=== PATIENT | female | born 1990 | race Caucasian/White ===

== ENCOUNTER → 2018-02-13 14:03 | Outpatient (CLI) | payer OTHER, SELFPAY ==
--- NOTE | 2018-02-13 | DI.US.S_ITS ---
PROCEDURE: US OB <= 14 WEEKS FETUS INDICATIONS: INITIAL SIZING OUTSIDE/PRIOR DATING DATA: Last menstrual period (LMP): 12/24/17. LMP-based estimated date of delivery (FRANKIE): 09/30/18 First dating scan (date and location): 02/13/18. Estimated date of delivery (FRANKIE) from first dating scan: 10/11/18 (however by sac measurements only recommend followup as discussed below). TECHNIQUE: Real-time scanning was performed of the fetus and maternal pelvic organs, with image documentation. Endovaginal scanning was also performed to better visualize the fetus and maternal ovaries. COMPARISON: None. FINDINGS: Embryo: No embryo seen at this time. Saclike fluid collection present with mean gestational sac size indicating 5 weeks 5 days gestation. No yolk sac identified. Measurement variability in dating: +/- 4 weeks by LMP, +/- 7 days by mean sac diameter (use before 6 weeks gestation if crown-rump length not able to be measured), +/- 5 days by crown-rump length (up to 8 weeks 6 days gestation), +/- 7 days by crown-rump length (up to 13 weeks 6 days gestation). Maternal organs: Ovaries within normal limits, with right corpus luteal cyst. Limited images through the kidneys demonstrate no hydronephrosis. IMPRESSION: Intrauterine gestational sac-like fluid collection present with no pole or yolk sac seen at this time. Recommend follow up in one week to assess embryonic viability. Dictated by: Chuy FREGOSO Interpreted: Patrice Cristina MD on 02/13/2018 at 15:40 Approved by: Jose Roland M.D. on 02/16/2018 at 10:21
== END ==
PROVIDERS: Visit Provider Nurse Practitioner Family
DX: Z36.89 Encounter for other specified antenatal screening (principal)
CPT/HCPCS: 76801

== ENCOUNTER → 2018-03-02 09:09 | Outpatient (CLI) | payer OTHER, SELFPAY ==
--- NOTE | 2018-03-02 | DI.US.S_ITS ---
PROCEDURE: US OB <= 14 WEEKS FETUS INDICATIONS: INITIAL SIZING AND DATING OUTSIDE/PRIOR DATING DATA: Last menstrual period (LMP): 12/24/17. LMP-based estimated date of delivery (FRANKIE): 09/30/18. First dating scan (date and location): 02/13/18 Estimated date of delivery (FRANKIE) from first dating scan: 10/11/18 by mean gestational sac size. TECHNIQUE: Real-time scanning was performed of the fetus and maternal pelvic organs, with image documentation. Endovaginal scanning was also performed to better visualize the fetus and maternal ovaries. COMPARISON: [facility], , OB <= 14 WEEKS FETUS, 02/13/2018, 14:25. FINDINGS: Embryo: Intrauterine gestational saclike fluid collection again identified without pole or yolk sac and there is irregularity of the sac. No change in size of the sac measuring roughly 9 mm. Measurement variability in dating: +/- 4 weeks by LMP, +/- 7 days by mean sac diameter (use before 6 weeks gestation if crown-rump length not able to be measured), +/- 5 days by crown-rump length (up to 8 weeks 6 days gestation), +/- 7 days by crown-rump length (up to 13 weeks 6 days gestation). Maternal organs: Left are not visualized. Right ovary within normal limits, with a corpus luteal cyst. Limited images through the kidneys demonstrate no hydronephrosis. IMPRESSION: Gestational saclike intrauterine fluid collection redemonstrated unchanged in size and measuring 9 mm and no pole or yolk sac is seen. Findings suggesting blighted ovum versus early embryonic demise. Recommend correlation with serial beta-hCGs. Dictated by: Chuy FREGOSO Interpreted: Jalen Orosco MD on 03/02/2018 at 10:06 Approved by: Jalen Orosco M.D. on 03/02/2018 at 14:40
== END ==
PROVIDERS: PCP Family Medicine; Visit Provider Family Medicine
DX: Z34.91 Encounter for supervision of normal pregnancy, unspecified, first trimester (principal)
CPT/HCPCS: 76801; 76817

== ENCOUNTER → 2018-07-28 14:43 | Outpatient (CLI) | payer OTHER, SELFPAY ==
--- NOTE | 2018-07-28 | DI.US.S_ITS ---
PROCEDURE: US PELVIC COMPLETE INDICATIONS: IRREGULAR MENSES TECHNIQUE: Real-time scanning was performed of the pelvic organs, with image documentation. Additional endovaginal scanning was necessary due to incomplete visualization of the adnexal and endometrial structures by transabdominal scanning. COMPARISON: None. FINDINGS: Transabdominal scanning: Limited scanning through the kidneys shows no hydronephrosis. No pathologic free abdominal or pelvic fluid. Endovaginal scanning: Uterus: Uterus is normal in size at 8.0 x 4.3 x 5.4 cm. The endometrium measures 10 mm in combined thickness. Ovaries: Solid appearing (likely complex) mass involves the right ovary measuring 2.0 x 1.6 x 1.8 cm with peripheral flow identified with color Doppler which may represent a complex cyst. The ovaries otherwise are normal bilaterally. IMPRESSION: Mass involving the right ovary which may represent a complex hemorrhagic cyst. Recommend short-term followup pelvic ultrasound in 6-12 weeks to assure temporal resolution. Dictated by: Chuy FREGOSO Interpreted: Haydee Kevin MD on 07/28/2018 at 17:06 Approved by: Haydee Kevin M.D. on 07/28/2018 at 17:38
== END ==
PROVIDERS: PCP Family Medicine; Visit Provider Nurse Practitioner Family
DX: N92.6 Irregular menstruation, unspecified (principal); N83.9 Noninflammatory disorder of ovary, fallopian tube and broad ligament, unspecified
CPT/HCPCS: 76830; 76856

== ENCOUNTER → 2018-09-24 17:30 | Outpatient (CLI) | payer OTHER, SELFPAY ==
[2018-09-24 18:47] LABS: HCG Quantitative /Beta subunit 8404.5 mIU/mL
== END ==
PROVIDERS: PCP Nurse Practitioner Family; Visit Provider Obstetrics & Gynecology
DX: O20.0 Threatened abortion (principal)
CPT/HCPCS: 36415; 84702

== ENCOUNTER → 2018-09-26 12:07 | Outpatient (CLI) | payer OTHER, SELFPAY ==
[2018-09-26 13:56] LABS: HCG Quantitative /Beta subunit 14475 mIU/mL
== END ==
PROVIDERS: PCP Nurse Practitioner Family; Visit Provider Obstetrics & Gynecology
DX: O20.0 Threatened abortion (principal)
CPT/HCPCS: 36415; 84702

== ENCOUNTER → 2018-11-09 16:26 | Outpatient (CLI) | payer OTHER, SELFPAY ==
[2018-11-09 17:14] LABS: Add Manual Diff / Slide Review NO; Basophils Absolute Auto 0 /uL (0-100); Basophils Percent Auto 0.4 % (0-2); Eosinophils Absolute Auto 100 /uL (0-450); Eosinophils Percent Auto 0.8 % (2-4); Hematocrit 40.4 % (36-46); Hemoglobin 13.9 g/dL (12.0-16.0); Lymphocytes Absolute Auto 2400 /uL (1100-4500); Lymphocytes Percent Auto 25.9 % (25-40); Mean Corpuscular HGB Conc 34.5 % (30-36); Monocytes Absolute Auto 700 /uL (0-900); Monocytes Percent Auto 7.8 % (3-14); Neutrophils Absolute Auto 5900 /uL (1500-7000); Neutrophils Percent Auto 65.1 % (50-75); Platelet Count 216 X10^3/uL (150-400); Red Blood Cell Count 4.49 X10^6/uL (4.0-5.2); Red Cell Distribution Width 14.5 % (11.6-14.8); White Blood Cell Count 9.1 X10^3/uL (4.5-11.0)
[2018-11-09 17:29] LABS: Appearance Urine UA CLEAR; Bilirubin Urine UA NEGATIVE (NEGATIVE); Color Urine UA YELLOW; Glucose Urine UA NEGATIVE (Negative); Ketones Urine UA NEGATIVE (NEGATIVE); Leukocyte Esterase Urine UA 2+ (NEGATIVE); Nitrite Urine UA NEGATIVE (Negative); Occult Blood Urine UA NEGATIVE (Negative); Protein Urine UA NEGATIVE (Negative); Specific Gravity Urine UA <=1.005 (1.000-1.035); Urobilinogen Urine UA 0.2 E.U./dL (0.2)
[2018-11-09 18:15] LABS: Hepatitis B Surface Antigen NEGATIVE s/c (NEGATIVE)
[2018-11-09 18:20] LABS: RBC Urine 0-1/HPF (0-5/HPF)
[2018-11-09 18:21] LABS: Bacteria Urine Few (2-10); Squamous Epithelial Cell Urine 1-5 /HPF; Transitional Epi Cells Urine 1-5/HPF (0-5/HPF); WBC Urine 5-10/HPF (0-5/HPF)
[2018-11-09 18:32] LABS: HIV 1 and 2 Antibody NEGATIVE (NEGATIVE); Hep C Virus Ab w/Reflex Quant NEGATIVE s/c (NEGATIVE)
[2018-11-11 10:44] LABS: RPR Screen Nonreactive (Nonreactive)
== END ==
PROVIDERS: PCP Nurse Practitioner Family; Visit Provider Obstetrics & Gynecology
DX: Z34.91 Encounter for supervision of normal pregnancy, unspecified, first trimester (principal)
CPT/HCPCS: 36415; 80055; 81003; 81015; 86703; 86787; 86803; 86850; 86900; 86901; 87086

== ENCOUNTER → 2018-11-17 19:06 | Outpatient (REF) | payer OTHER, SELFPAY ==
[2018-11-17 21:32] LABS: Urine N gonorrhoeae NOT DETECTED
[2018-11-17 21:48] LABS: Urine Chlamydia NOT DETECTED
== END ==
LOC: LAB 19:06
PROVIDERS: PCP Nurse Practitioner Family; Visit Provider Obstetrics & Gynecology
DX: Z34.81 Encounter for supervision of other normal pregnancy, first trimester (principal)
CPT/HCPCS: 87491; 87591

== ENCOUNTER → 2018-12-22 17:07 | Outpatient (CLI) | payer OTHER, SELFPAY ==
[2018-12-29 12:52] LABS: AFP, Serum 49.5 ng/mL; Cigarette Smoker NOT GIVEN; Donated Egg N; Donor Egg Age NOT GIVEN; Estriol, Free 1.44 ng/mL; Inhibin A, Dimeric 82 pg/mL; Maternal Weight 134 lbs; Number of Fetuses 1; Previous Pregnancy Down Syndro N; hCG, MoM 0.65
== END ==
PROVIDERS: PCP Nurse Practitioner Family; Visit Provider Obstetrics & Gynecology
DX: Z34.82 Encounter for supervision of other normal pregnancy, second trimester (principal); Z3A.19 19 weeks gestation of pregnancy
CPT/HCPCS: 36415; 82105; 82677; 84702; 86336

== ENCOUNTER → 2019-01-01 15:13 | Outpatient (CLI) | payer OTHER, SELFPAY ==
--- NOTE | 2019-01-01 15:15 | DI.US.S_ITS ---
PROCEDURE: US OB >= 14 WEEKS FETUS INDICATIONS: Anatomy Survey OUTSIDE/PRIOR DATING DATA: Last menstrual period (LMP): Unknown. LMP-based estimated date of delivery (FRANKIE): N./A.. First dating scan (date and location): 10/19/18. Estimated date of delivery (FRANKIE) from first dating scan: 05/21/19. TECHNIQUE: Real-time scanning was performed of the fetus, with image documentation and biometric measurements. Endovaginal scanning: No COMPARISON: [facility], , OB >= 14 WEEKS FETUS, 12/22/2018, 17:01. FINDINGS: General: A single living intrauterine gestation is present. Presentation: Vertex. Placenta: Placental position is anterior, with complete previa at this time. Amniotic fluid index: 1020 cm, normal range is 5-24 cm. heart rate: 152 beats per minute. Maternal cervical canal: 3.8 cm biometrics: Biparietal diameter: 20 weeks Head circumference: 19 weeks 6 days Abdominal circumference: 21 weeks 3 days Femur length: 19 weeks 2 days Estimated gestational age from initial scan: 20 weeks Composite gestational age from present scan: 20 weeks 1 day Estimated weight and percentile: 349 g; 67 percentile Measurement variability for biometric dating: +/- 7 days from 14 weeks to 15 weeks 6 days gestation, +/- 10 days from 16 weeks to 21 weeks 6 days gestation, +/- 2 weeks from 22 weeks to 27 weeks 6 days gestation, +/- 3 weeks for 28 weeks gestation or later. weight reference: 4500 g or EFW >90/95% is considered macrosomia or large for gestational age. EFW <10% is small for gestational age. EFW 5% or less is considered intra-uterine growth restriction. Anatomic survey: Neuro: Ventricles are non-dilated at less than 10 mm. Cisterna magna is normal at 3-11 mm. Cerebellum is normal in size and morphology. Nuchal skin fold: Normal at less than 6 mm between 14-21 weeks gestational age. Face: Nose and lips, facial profile are normal. Spine: No evidence for spina bifida. Heart: 4-chambered heart is present, with normal ventricular outflow tracts. Diaphragm: Diaphragm is intact. Stomach: Left-sided stomach is present. Kidneys: No hydronephrosis. Normal is less than 5 mm in 2nd trimester, less than 7 mm in 3rd trimester. Cord: 3-vessel cord has orthotopic insertion. Bladder: Normal in size. Extremities: All 4 extremities identified. IMPRESSION: 1. Single AP redemonstrated and interval growth is normal. 2. Normal anatomic survey. 3. Complete placenta previa at this time. Followup recommended. Dictated by: Chuy FREGOSO Interpreted: Erik Lim MD on 01/01/2019 at 16:42 Approved by: Erik Lim M.D. on 01/01/2019 at 17:15
== END ==
PROVIDERS: PCP Nurse Practitioner Family; Visit Provider Obstetrics & Gynecology
DX: Z34.02 Encounter for supervision of normal first pregnancy, second trimester (principal); Z3A.20 20 weeks gestation of pregnancy
CPT/HCPCS: 76811

== ENCOUNTER → 2019-02-16 14:12 | Outpatient (CLI) | payer OTHER, SELFPAY ==
[2019-02-16 16:08] LABS: Hematocrit 36.4 % (36-46); Hemoglobin 12.6 g/dL (12.0-16.0)
[2019-02-16 18:13] LABS: GTT (PREG) 1 Hour PP 50gm Dose 112 mg/dL (76-139)
== END ==
PROVIDERS: Visit Provider Obstetrics & Gynecology
DX: Z34.02 Encounter for supervision of normal first pregnancy, second trimester (principal)
CPT/HCPCS: 82950; 85014; 85018

== ENCOUNTER 2019-03-20 00:29 | Observation (INO) | payer OTHER, SELFPAY ==
[2019-03-20] MEDS: LACTATED RINGERS 1,000 ML 1000 ML IV (01:36)
[2019-03-20] MEDS: NIFEdipine 10 MG CAPSULE PO ×4 (01:36→02:44)
== END 2019-03-20 03:10 | disposition home or self-care (01) ==
LOC: LABOR 00:32
PROVIDERS: Admitting Provider Obstetrics & Gynecology; Visit Provider Obstetrics & Gynecology
DX: O47.03 False labor before 37 completed weeks of gestation, third trimester (principal); O20.9 Hemorrhage in early pregnancy, unspecified; Z3A.31 31 weeks gestation of pregnancy
CPT/HCPCS: 59025; 59050; 96360; G0378; G0379

== ENCOUNTER → 2019-04-21 15:00 | Outpatient (CLI) | payer OTHER, SELFPAY ==
[2019-04-22 13:07] LABS: Strep Grp B PCR POS for Grp B Strep
== END ==
PROVIDERS: Visit Provider Obstetrics & Gynecology
DX: Z34.03 Encounter for supervision of normal first pregnancy, third trimester (principal); Z3A.36 36 weeks gestation of pregnancy
CPT/HCPCS: 87653

== ENCOUNTER 2019-05-13 05:35 | Inpatient (IN) | payer OTHER, SELFPAY ==
[2019-05-13 06:22] LABS: Add Manual Diff / Slide Review NO; Basophils Absolute Auto 100 /uL (0-100); Basophils Percent Auto 0.6 % (0-2); Eosinophils Absolute Auto 100 /uL (0-450); Eosinophils Percent Auto 1.3 % (2-4); Hematocrit 39.7 % (36-46); Hemoglobin 13.8 g/dL (12.0-16.0); Lymphocytes Absolute Auto 2300 /uL (1100-4500); Lymphocytes Percent Auto 21.5 % (25-40); Mean Corpuscular HGB Conc 34.9 % (30-36); Mean Corpuscular Volume 91.9 fL (80-100); Monocytes Absolute Auto 900 /uL (0-900); Monocytes Percent Auto 8.6 % (3-14); Neutrophils Absolute Auto 7200 /uL (1500-7000); Platelet Count 159 X10^3/uL (150-400); Red Blood Cell Count 4.32 X10^6/uL (4.0-5.2); Red Cell Distribution Width 14.2 % (11.6-14.8); White Blood Cell Count 10.5 X10^3/uL (4.5-11.0)
[2019-05-13] MEDS: PENICILLIN G POTASSIUM 5,000,000 UNIT in DEXTROSE 5% IN WATER 250 ML IV (06:30)
[2019-05-13] MEDS: LACTATED RINGERS 1,000 ML 100 ML IV ×3 (06:35→15:37)
[2019-05-13 07:47] VITALS: BP 123/58
[2019-05-13] MEDS: OXYTOCIN PREMIX 30 UNIT/500 ML PLAST..BAG IV (09:41)
[2019-05-13] MEDS: PENICILLIN G POTASSIUM 3,000,000 UNIT/50 ML FROZ.PIGGY 100 UNIT IV ×2 (11:00→15:00)
[2019-05-13 21:27] LABS: Hematocrit 31.5 % (36-46); Hemoglobin 10.9 g/dL (12.0-16.0)
[2019-05-13] MEDS: ACETAMINOPHEN 325 MG TABLET 650 MG PO (22:02)
[2019-05-14] MEDS: KETOROLAC 30 MG/ML VIAL IV ×4 (00:17→18:26)
[2019-05-14] MEDS: DOCUSATE 250 MG CAPSULE PO (10:11)
[2019-05-14] MEDS: PRENATAL VIT,CALC/IRON/FOLIC 1 TABLET 1 TAB PO (10:11)
[2019-05-14] MEDS: DERMOPLAST SPRAY 20% 60 ML 1 SPRAY TOP (10:12)
--- NOTE | 2019-05-14 10:57 | PM.OBHP.1 ---
OB HPI Date/Time Date of admission: 05/13/19 Date Patient Seen: 05/13/19 Time Patient Seen: 07:30 History of Present Condition Chief complaint: Evaluation of Labor : 3 Para: 0 Estimated Date of Delivery: 05/18/19 Estimated Gestational Age (weeks): 39+ 2 Narrative: Araceli Romero is a 28 year old female 3 para 0 at 39-,2/7 weeks gestation who presented with spontaneous rupture of membranes Indications Other reason(s) for admission: Spontaneous rupture of membranes History of Present care: good care, initiated at week # (13), number of visits (11) and pounds weight gain (35) Dating criteria: LMP confirmed by 1st trimester US Ultrasounds: normal 1st trimester US and normal mid trimester US Obstetrical complications: none Medical complications: gastrointestinal (Crohn's) Preadmission Labs Blood type: O (+) positive -: Antibody screen: negative, GBS status: positive, HBsAG: negative, HIV: negative, HSV 1: unknown and HSV 2: unknown -: Chlamydia screen: not detected and Gonorrhea screen: not detected -: Rubella: immune and Varicella: immune HCT: 36.4 HCAB: negative Quad screen: Normal Urine: Negative 1 hr GTT: 112 Prior (ies) History: SAB x 2 Evaluation Evaluation Baseline heart rate: 135 Variability: Moderate (11-25) monitor accelerations: Present monitor decelerations: Absent Contraction Frequency (minutes): 5 Uterine Contraction Intensity: Moderate Category of Tracing: I Laboratory results: Laboratory Tests 05/13/19 05/13/19 05/13/19 06:15 06:15 21:17 WBC 10.5 RBC 4.32 Hgb 13.8 10.9 L Hct 39.7 31.5 L MCV 91.9 MCH 32.0 MCHC 34.9 RDW 14.2 Plt Count 159 Neut % (Auto) 68.0 Lymph % (Auto) 21.5 L [place] % (Auto) 8.6 Eos % (Auto) 1.3 L Baso % (Auto) 0.6 Neut # (Auto) 7200 H Lymph # (Auto) 2300 [place] # (Auto) 900 Eos # (Auto) 100 Baso # (Auto) 100 Blood Type O Positive Antibody Screen Negative Non-invasive Membranes Rupture Test: positive [facility] Medical History (Updated 11/23/18 @ 04:29 by Gifty Zarate MD) Abnormal Pap smear of cervix (Chronic ~2009) Crohn's disease (Chronic ~2005) History of stomach ulcers (Chronic ~2013) Surgical History (Updated 11/23/18 @ 04:29 by Gifty Zarate MD) Status post loop electrosurgical excision procedure (LEEP) of cervix Family History (Updated 03/10/16 @ 00:00 by Conversion Provider) Father Age: 70 Hypertension Grandmother Age: 88 Diabetes mellitus Hypertension Mother Age: 61 Hypertension Grandfather Heart disease Hypertension Grandmother Age: 84 Hypertension Social History Smoking Status: Never smoker Family History (Updated 03/10/16 @ 00:00 by Conversion Provider) Father Age: 70 Hypertension Grandmother Age: 88 Diabetes mellitus Hypertension Mother Age: 61 Hypertension Grandfather Heart disease Hypertension Grandmother Age: 84 Hypertension Social History Smoking Status: Never smoker Meds Home Medications and Allergies Home Medications Medication Instructions Recorded Confirmed Type benzoyl peroxide 5 % topical gel 1 applictn TOP DAILY 09/24/18 09/24/18 History clindamycin phosphate 1 % lotion 1 applictn TOP DAILY 09/24/18 09/24/18 History progesterone micronized 100 mg 100 mg PO BID #60 cap 10/19/18 Rx capsule aspirin 81 mg chewable tablet 81 mg PO DAILY 11/09/18 11/09/18 History prenat.vits,lacho,cva-[id number]-[id number] 1 tab PO DAILY 11/09/18 11/09/18 History Double Electric Breast Pump #1 each 02/01/19 Rx nifedipine 30 mg tablet,extended 30 mg PO BID #12 tab 04/21/19 Rx release Allergies Allergy/AdvReac Type Severity Reaction Status Date / Time No Known Allergies Allergy Uncoded 05/13/19 06:16 Exam Vital Signs (past 8 hours): Generally: Patient in moderate distress with contractions. Fundal height: 39 cm Estimated weight: 8 lb Extremities: Trace edema, negative Homans Objective Labs Result Diagrams: 05/13/19 21:17 Labs: Laboratory Results - last 24 hr 05/13/19 21:17 Hgb 10.9 L Hct 31.5 L Assessment and Plan Assessment and Plan Assessment and Plan narrative: Assessment: 28-year-old 3 para 0 at 39-,2/7 weeks gestation status post rupture of membranes 2 hr ago, not in active labor GBS positive Plan: Antibiotic started If no regular contractions at 4 hrs post rupture of membranes will begin Pitocin Epidural as necessary Expected management to spontaneous vaginal delivery Time Spent with Patient Total time spent with greater than 50% in coordination of care (as documented) at patient's floor/unit and/or counseling patient:: 15-24 minutes
--- NOTE | 2019-05-14 11:11 | P.PCNOB_ITS ---
Labor & Delivery Delivery date: 05/13/19 Cervical ripening method: none Induction method: none Delivery augmentation: pitocin Delivery monitor: external FHT and external uterine Route of delivery: Episiotomy description: None L&D Laceration Description: Periurethral - 2nd Degree and Vaginal - 2nd Degree Delivery repair: vicryl and chromic Estimated blood loss (mL): 400 Anesthesia type: Epidural Complications: None Narrative: Patient complete and pushed for 1 and 0.5 hr. At 5:58 p.m., a live male delivered spontaneously over an intact perineum. No nuchal cord. The remainder of the body delivered without difficulty and was placed on mom's abdomen. After the cord stopped pulsing it was double clamped and cut. Cord bloods were obtained. The placenta delivered intact with a 3 vessel cord at 6:20 p.m.. Pitocin was given in the IV fluids. An in-and out catheterization was performed with 100 cc of clear yellow urine. A second-degree vaginal/perineal laceration was repaired in the usual fashion. Hemostasis was achieved. Apgars 7 at 1 min and 9 at 5 min. Weight 8 lb 2.5 oz. . Epidural analgesia. Mom and infant stable to recovery. Plan for aftercare: To routine care
--- NOTE | 2019-05-14 11:16 | P.PNOB_ITS ---
Subjective - OB Subjective Patient comments: no complaints Rudyard baby status: doing well and nursing well Rudyard feeding status: exclusively breast feeding Date Patient Seen: 05/14/19 Time Patient Seen: 08:20 Exam Vital Signs (past 8 hours): Generally: Patient is sitting up in bed, no acute distress Fundus: Firm at U -1 Extremities: Negative Tod, trace edema Perineum: Swollen, intact. Objective Labs Result Diagrams: 05/13/19 21:17 Labs: Laboratory Results - last 24 hr 05/13/19 21:17 Hgb 10.9 L Hct 31.5 L Assessment & Plan Plan day: 1 plan OB: routine care Time Spent With Patient Time: Total time spent is greater than 50% in coordination of care (as documented) at patient's floor/unit and/or counseling patient: Time with patient: less than 15 minutes
[2019-05-14] MEDS: OXYCODONE/ACETAMINOPHEN 5/325 TABLET 1 TAB PO (15:16)
[2019-05-15] MEDS: IBUPROFEN 600 MG TABLET PO ×2 (00:55→09:46)
[2019-05-15] MEDS: PRENATAL VIT,CALC/IRON/FOLIC 1 TABLET 1 TAB PO (09:47)
[2019-05-15] MEDS: DOCUSATE 250 MG CAPSULE PO (09:47)
--- NOTE | 2019-05-15 10:03 | PM.OBDS.1 ---
Discharge Providers Provider Date of admission: 05/13/19 05:35 Discharge Date: 05/15/19 Consults: 05/13/19 20:24 Consult to Physician Non Invasive Cardiologist Routine Comment: Discharge provider: Gifty Zarate MD Summary Hospital Course Date Patient Seen: 05/15/19 Time Patient Seen: 10:04 Procedures: Augmentation of labor with Pitocin Epidural analgesia Spontaneous vaginal delivery Second-degree laceration repair Hospital Course: Patient is a 28-year-old 3 para 1 day # 2 status post spontaneous vaginal delivery. Patient presented early in the morning on 05/13/2019 with spontaneous rupture membranes at 5:15 a.m. Pitocin was started 4 hours later when she did not have regular contractions. She received an epidural for pain management. She progressed to complete dilation and pushed about an hour and a half. Right after delivery she had 2 episodes where her blood pressure dropped and she became diaphoretic and tachycardic. This resolved with fluids and massage of the uterus. No significant hemorrhage was noted. This resolved after a few hours. Peripartum Data Delivery Method: Natural Vaginal Laceration description: Vaginal - 2nd Degree Episiotomy description: None Procedures: Spontaneous vaginal delivery Epidural analgesia Pitocin augmentation of labor complications: other (2 episodes of decreased blood pressure) Status at Discharge Cognitive/behavioral status at discharge: oriented Overall status at discharge: patient is progressing back to baseline Time Spent with Patient Time attestation: Total time spent providing and/or coordinating discharge services: Time spent: Less than 30 minutes Objective Labs Result Diagrams: 05/13/19 21:17 Exam Vital Signs (past 8 hours): Generally: Patient is sitting up in bed, no acute distress Fundus: Firm at U -1 Extremities: 1+ edema, negative Homans Discharge Plan Discharge Plan Patient Disposition: Home Discharge comment: Call with fever, chills or bleeding vaginally more than a pad in an hour Discharge Med Rec/Prescriptions Prescriptions: Continued prenat.vits,lacho,[id number] tablet 1 tab PO DAILY RF: 0 clindamycin phosphate 1 % lotion 1 applictn TOP DAILY RF: 0 benzoyl peroxide 5 % gel 1 applictn TOP DAILY RF: 0 Discontinued progesterone micronized 100 mg capsule 100 mg PO BID Qty: 60 RF: 3 aspirin 81 mg tablet,chewable 81 mg PO DAILY RF: 0 nifedipine 30 mg tablet extended release 30 mg PO BID Qty: 12 RF: 0 No Action (DME) Double Electric Breast Pump 0 .ROUTE .MEDSUPPLY Qty: 1 RF: 0 Follow up/Referrals: Gifty Zarate MD [Physician] - 6 Weeks Provider Discharge Instructions Diet: Regular Activity: No intercourse Skin/Wound/Dressing Care Report to your healthcare provider any signs of infection, such as:: chills, fever, increased pain and unusual drainage Visit Report/Discharge Packet Instructions: DI for Labor and Delivery, Vaginal
[2019-05-15 10:43] VITALS: BP 122/62; PULSE 96; RESP 16; TEMP 36.6
== END 2019-05-15 12:45 | disposition home or self-care (01) | DRG 807 ==
PROVIDERS: Admitting Provider Obstetrics & Gynecology; Visit Provider Obstetrics & Gynecology
DX: O99.824 Streptococcus B carrier state complicating childbirth (principal); Z37.0 Single live birth; Z3A.39 39 weeks gestation of pregnancy; O70.1 Second degree perineal laceration during delivery; I95.9 Hypotension, unspecified
CPT/HCPCS: 01967; 36415; 59050; 59400; 85014; 85018; 85025; 86850; 86900; 86901; G0379; J1885; J2540; J2590

== ENCOUNTER → 2019-11-22 08:46 | Outpatient (CLI) | payer OTHER, SELFPAY ==
[2019-11-22 09:16] LABS: Add Manual Diff / Slide Review NO; Basophils Absolute Auto 100 /uL (0-100); Basophils Percent Auto 0.6 % (0-2); Eosinophils Absolute Auto 100 /uL (0-450); Eosinophils Percent Auto 1.5 % (2-4); Hematocrit 41.5 % (36-46); Hemoglobin 14.4 g/dL (12.0-16.0); Lymphocytes Absolute Auto 1900 /uL (1100-4500); Lymphocytes Percent Auto 22.9 % (25-40); Mean Corpuscular HGB Conc 34.8 % (30-36); Mean Corpuscular Hemoglobin 30.1 PG (26-34); Mean Corpuscular Volume 86.6 fL (80-100); Monocytes Absolute Auto 800 /uL (0-900); Monocytes Percent Auto 9.9 % (3-14); Neutrophils Absolute Auto 5400 /uL (1500-7000); Neutrophils Percent Auto 65.1 % (50-75); Platelet Count 286 X10^3/uL (150-400); Red Blood Cell Count 4.79 X10^6/uL (4.0-5.2); Red Cell Distribution Width 13.4 % (11.6-14.8); White Blood Cell Count 8.3 X10^3/uL (4.5-11.0)
[2019-11-22 09:34] LABS: C-Reactive Protein Quant 4.3 mg/dL (<1.0)
[2019-11-22 09:55] LABS: Erythrocyte Sedimentation Rate 47 MM/HR (0-20)
[2019-11-22 10:06] LABS: TSH w/ Reflex to FT4 < 0.02 uIU/mL (0.47-4.68)
[2019-11-22 11:02] LABS: Free T4, Direct Thyroxine 3.16 ng/dL (0.78-2.19)
== END ==
PROVIDERS: PCP Nurse Practitioner Family; Referring Provider Physician Assistant; Visit Provider Physician Assistant
DX: R23.2 Flushing (principal)
CPT/HCPCS: 36415; 84439; 84443; 85025; 85651; 86140

== ENCOUNTER → 2020-02-18 07:16 | Outpatient (CLI) | payer OTHER, SELFPAY ==
[2020-02-18 08:10] LABS: Hematocrit 42.3 % (36-46); Hemoglobin 14.7 g/dL (12.0-16.0); Mean Corpuscular HGB Conc 34.7 % (30-36); Mean Corpuscular Hemoglobin 29.4 PG (26-34); Mean Corpuscular Volume 84.7 fL (80-100); Platelet Count 213 X10^3/uL (150-400); Red Cell Distribution Width 15.6 % (11.6-14.8); White Blood Cell Count 5.2 X10^3/uL (4.5-11.0)
[2020-02-18 08:27] LABS: Alanine Aminotransferase 17 IU/L (<35); Albumin Globulin Ratio 1.5 (1.0-2.8); Alkaline Phosphatase 103 U/L (38-126); Aspartate Aminotransferase 29 IU/L (14-36); BUN Creatinine Ratio 21.2 (6-22); Bilirubin Total 1.1 mg/dL (0.2-1.3); Blood Urea Nitrogen 14 mg/dL (7-17); Calcium 10.2 mg/dL (8.4-10.2); Carbon Dioxide 29 mmol/L (22-32); Chloride 103 mmol/L (98-107); Cholesterol 166 mg/dL (140-199); Estimated Glomerular Filt Rate > 60.0 mL/min (>60); Globulin 3.4 g/dL (1.7-4.1); Glucose 86 mg/dL (70-100); HDL Cholesterol 74 mg/dL (40-60); HEMOLYSIS < 15 (0-50); LDL Cholesterol Calculated 83 mg/dL (<100); Sodium 140 mmol/L (137-145); Total Protein 8.4 g/dL (6.3-8.2); Triglycerides 47 mg/dL (35-150)
[2020-02-18 09:38] LABS: Free T4, Direct Thyroxine 1.23 ng/dL (0.78-2.19)
[2020-02-18 09:52] LABS: Thyroid Stimulating Hormone 3.53 uIU/mL (0.47-4.68)
== END ==
PROVIDERS: PCP Nurse Practitioner Family; Referring Provider Nurse Practitioner Family; Visit Provider Nurse Practitioner Family
DX: Z00.00 Encounter for general adult medical examination without abnormal findings (principal); R79.89 Other specified abnormal findings of blood chemistry; Z13.6 Encounter for screening for cardiovascular disorders
CPT/HCPCS: 36415; 80053; 80061; 84439; 84443; 85027

== ENCOUNTER → 2020-02-24 07:56 | Outpatient (CLI) | payer OTHER, SELFPAY ==
--- NOTE | 2020-02-24 07:57 | DI.US.S_ITS ---
PROCEDURE: US THYROID INDICATIONS: ENLARGED THYROID TECHNIQUE: Real-time scanning was performed of the thyroid gland, with image documentation. COMPARISON: None. FINDINGS: Right: Thyroid lobe measures 4.2 x 2.1 x 1.6 cm, and is mildly diffusely heterogeneous in echotexture. Moderate vascularity. Left: Thyroid lobe measures 4.5 x 1 5 x 1.3 cm, and is mildly diffusely heterogeneous in echotexture. Moderate vascularity. Isthmus: 3.7 mm thick. IMPRESSION: Diffusely heterogeneous and vascular thyroid which can be associated with thyroiditis. Correlate clinically. Dictated by: Chuy Mayorga [facility] Interpreted: Stacy Roland MD on 02/24/2020 at 8:54 Approved by: Stacy Roland MD, PhD on 02/24/2020 at 14:55
== END ==
PROVIDERS: PCP Nurse Practitioner Family; Referring Provider Nurse Practitioner Family; Visit Provider Nurse Practitioner Family
DX: E04.9 Nontoxic goiter, unspecified (principal)
CPT/HCPCS: 76536

== ENCOUNTER → 2020-07-04 14:16 | Outpatient (CLI) | payer OTHER, SELFPAY ==
[2020-07-04 16:12] LABS: Free T4, Direct Thyroxine 1.15 ng/dL (0.78-2.19)
[2020-07-04 16:27] LABS: Thyroid Stimulating Hormone 1.82 uIU/mL (0.47-4.68)
== END ==
PROVIDERS: PCP Nurse Practitioner Family; Referring Provider Obstetrics & Gynecology; Visit Provider Obstetrics & Gynecology
DX: E06.9 Thyroiditis, unspecified (principal)
CPT/HCPCS: 36415; 84439; 84443

== ENCOUNTER → 2020-12-04 07:53 | Outpatient (CLI) | payer OTHER, SELFPAY ==
[2020-12-04 09:21] LABS: HCG Quantitative /Beta subunit 996.1 mIU/mL
== END ==
PROVIDERS: PCP Nurse Practitioner Family; Referring Provider Obstetrics & Gynecology; Visit Provider Obstetrics & Gynecology
DX: Z34.81 Encounter for supervision of other normal pregnancy, first trimester (principal)
CPT/HCPCS: 36415; 84702

== ENCOUNTER → 2021-01-10 13:25 | Outpatient (CLI) | payer OTHER, SELFPAY ==
[2021-01-10 14:30] LABS: Add Manual Diff / Slide Review NO; Basophils Absolute Auto 0 /uL (0-100); Basophils Percent Auto 0.3 % (0-2); Eosinophils Absolute Auto 100 /uL (0-450); Eosinophils Percent Auto 1.1 % (2-4); Hemoglobin 12.6 g/dL (12.0-16.0); Lymphocytes Absolute Auto 1700 /uL (1100-4500); Lymphocytes Percent Auto 20.3 % (25-40); Mean Corpuscular HGB Conc 35.1 % (30-36); Mean Corpuscular Hemoglobin 30.9 PG (26-34); Mean Corpuscular Volume 88.1 fL (80-100); Monocytes Absolute Auto 500 /uL (0-900); Monocytes Percent Auto 6.5 % (3-14); Neutrophils Absolute Auto 6000 /uL (1500-7000); Neutrophils Percent Auto 71.8 % (50-75); Platelet Count 201 X10^3/uL (150-400); Red Blood Cell Count 4.08 X10^6/uL (4.0-5.2); Red Cell Distribution Width 14.2 % (11.6-14.8); White Blood Cell Count 8.4 X10^3/uL (4.5-11.0)
[2021-01-10 15:16] LABS: Free T4, Direct Thyroxine 1.42 ng/dL (0.78-2.19)
[2021-01-10 15:30] LABS: Thyroid Stimulating Hormone 0.914 uIU/mL (0.47-4.68)
[2021-01-10 17:04] LABS: Hepatitis B Surface Antigen NEGATIVE s/c (NEGATIVE); Rubella Antibody IgG 83.1 IU/mL (>15)
[2021-01-10 17:35] LABS: HIV 1 & 2 Ab/Ag 4th Gen Combo NEGATIVE (NEGATIVE); Hep C Virus Ab w/Reflex Quant NEGATIVE s/c (NEGATIVE)
[2021-01-10 18:20] LABS: Appearance Urine UA CLEAR; Bilirubin Urine UA NEGATIVE (NEGATIVE); Color Urine UA YELLOW; Glucose Urine UA NEGATIVE (Negative); Ketones Urine UA NEGATIVE (NEGATIVE); Leukocyte Esterase Urine UA NEGATIVE (NEGATIVE); Nitrite Urine UA NEGATIVE (Negative); Occult Blood Urine UA TRACE-LYSED (Negative); Protein Urine UA NEGATIVE (Negative); Specific Gravity Urine UA 1.025 (1.000-1.035); Urobilinogen Urine UA 0.2 E.U./dL (0.2)
[2021-01-11 08:45] LABS: RPR Screen Non Reactive (Non Reactive)
[2021-01-11 10:46] LABS: Varicella IgG Antibody <135 index (Immune >165)
== END ==
PROVIDERS: PCP Nurse Practitioner Family; Referring Provider Obstetrics & Gynecology; Visit Provider Obstetrics & Gynecology
DX: Z34.81 Encounter for supervision of other normal pregnancy, first trimester (principal)
CPT/HCPCS: 36415; 80055; 81003; 84439; 84443; 86787; 86803; 86850; 86900; 86901; 87077; 87086; 87147; 87389

== ENCOUNTER → 2021-01-23 19:08 | Outpatient (ROUT) | payer OTHER, SELFPAY ==
[2021-01-23 20:42] LABS: Urine N gonorrhoeae NOT DETECTED
[2021-01-23 21:32] LABS: Urine Chlamydia NOT DETECTED
== END ==
PROVIDERS: PCP Nurse Practitioner Family; Visit Provider Obstetrics & Gynecology
DX: Z34.81 Encounter for supervision of other normal pregnancy, first trimester (principal); Z3A.12 12 weeks gestation of pregnancy
CPT/HCPCS: 87491; 87591

== ENCOUNTER → 2021-02-20 14:05 | Outpatient (CLI) | payer OTHER, SELFPAY ==
[2021-02-22 19:35] LABS: AFP Value 35.8 ng/mL (.); Gest Age on Col Date 16.1 weeks (.); Insulin Dep Diabetes No (.); OSBR Risk 1IN 10000 (.); Results Report (.); Test Results *Screen Negative* (.)
== END ==
PROVIDERS: PCP Nurse Practitioner Family; Referring Provider Obstetrics & Gynecology; Visit Provider Obstetrics & Gynecology
DX: Z34.82 Encounter for supervision of other normal pregnancy, second trimester (principal); Z3A.16 16 weeks gestation of pregnancy
CPT/HCPCS: 36415; 82105

== ENCOUNTER → 2021-03-20 12:13 | Outpatient (CLI) | payer OTHER, SELFPAY ==
--- NOTE | 2021-03-20 12:14 | DI.US.S_ITS ---
PROCEDURE: US OB >= 14 WEEKS FETUS INDICATIONS: ANATOMY SCAN OUTSIDE/PRIOR DATING DATA: Last menstrual period (LMP): 10/30/20 . LMP-based estimated date of delivery (FRANKIE): 08/06/21 . First dating scan (date and location): 12/26/[address] Zarate Estimated date of delivery (FRANKIE) from first dating scan: 08/06/21 . TECHNIQUE: Real-time scanning was performed of the fetus, with image documentation and biometric measurements. Endovaginal scanning: Not performed COMPARISON: [facility], OB <= 14 WK FETUS ADD GEST, 01/23/2021, 15:56. [facility] OB <= 14 WEEKS FETUS, 12/26/2020, 17:07. [facility], OB >= 14 WEEKS FETUS, 04/07/2019, 9:29. FINDINGS: General: A single living intrauterine gestation is present. Presentation: Vertex/oblique. Placenta: Placental position is anterior , without previa. Amniotic fluid index: 14.6 cm, normal range is 5-24 cm. heart rate: 145 beats per minute. Maternal cervical canal: 4.4 cm long. Normal lower limit is 2.5 cm. biometrics: Biparietal diameter: 5.0 cm, 21 weeks 0 days Head circumference: 18.8 cm, 21 weeks 1 day Abdominal circumference: 16.6 cm, 21 weeks 4 days Femur length: 3.3 cm, 20 weeks 1 day Estimated gestational age from initial scan: 20 weeks 1 day Composite gestational age from present scan: 21 weeks 0 days Estimated weight and percentile: 391 g, 88th percentile Measurement variability for biometric dating: +/- 7 days from 14 weeks to 15 weeks 6 days gestation, +/- 10 days from 16 weeks to 21 weeks 6 days gestation, +/- 2 weeks from 22 weeks to 27 weeks 6 days gestation, +/- 3 weeks for 28 weeks gestation or later. weight reference: 4500 g or EFW >90/95% is considered macrosomia or large for gestational age. EFW <10% is small for gestational age. EFW 5% or less is considered intra-uterine growth restriction. Anatomic survey: Neuro: Ventricles are non-dilated at less than 10 mm. Cisterna magna is normal at 3-11 mm. Cerebellum is normal in size and morphology. Nuchal skin fold: Normal at less than 6 mm between 14-21 weeks gestational age. Face: Nose and lips, facial profile are normal. Spine: No evidence for spina bifida. Heart: 4-chambered heart is present, with normal ventricular outflow tracts. Diaphragm: Diaphragm is intact. Stomach: Left-sided stomach is present. Kidneys: No hydronephrosis. Normal is less than 5 mm in 2nd trimester, less than 7 mm in 3rd trimester. Cord: 3-vessel cord has orthotopic insertion. Bladder: Normal in size. Extremities: All 4 extremities identified. IMPRESSION: Single living intrauterine fetus demonstrating appropriate interval growth as above. Normal anatomic survey Dictated by: Jose Roland M.D. on 03/20/2021 at 15:57 Approved by: Jose Roland M.D. on 03/20/2021 at 16:01
== END ==
PROVIDERS: PCP Nurse Practitioner Family; Referring Provider Obstetrics & Gynecology; Visit Provider Obstetrics & Gynecology
DX: Z34.82 Encounter for supervision of other normal pregnancy, second trimester (principal); Z3A.21 21 weeks gestation of pregnancy
CPT/HCPCS: 76811

== ENCOUNTER → 2021-04-30 09:06 | Outpatient (CLI) | payer OTHER, SELFPAY ==
[2021-04-30 11:17] LABS: Hematocrit 35.5 % (36-46); Hemoglobin 12.4 g/dL (12.0-16.0)
[2021-04-30 11:44] LABS: GTT (PREG) 1 Hour PP 50gm Dose 105 mg/dL (76-139)
== END ==
PROVIDERS: PCP Nurse Practitioner Family; Referring Provider Obstetrics & Gynecology; Visit Provider Obstetrics & Gynecology
DX: Z34.82 Encounter for supervision of other normal pregnancy, second trimester (principal); Z3A.26 26 weeks gestation of pregnancy
CPT/HCPCS: 36415; 82950; 85014; 85018

== ENCOUNTER 2021-05-24 13:53 | Outpatient (CLI) | payer OTHER, SELFPAY | END 2021-05-24 15:00 | disposition home or self-care (01) | LOC: LABOR 14:05 → OB 05-29 10:44 | PROVIDERS: PCP Nurse Practitioner Family; Referring Provider Obstetrics & Gynecology; Visit Provider Obstetrics & Gynecology | DX: O26.893 Other specified pregnancy related conditions, third trimester (principal); R10.9 Unspecified abdominal pain; Z3A.29 29 weeks gestation of pregnancy | CPT/HCPCS: 59025; G0378; G0379 ==

== ENCOUNTER 2021-07-31 08:03 | Inpatient (IN) | payer OTHER, SELFPAY ==
[2021-07-31 09:54] LABS: Add Manual Diff / Slide Review NO; Basophils Absolute Auto 100 /uL (0-100); Basophils Percent Auto 0.5 % (0-2); Eosinophils Absolute Auto 100 /uL (0-450); Eosinophils Percent Auto 0.9 % (2-4); Hematocrit 39.7 % (36-46); Hemoglobin 13.6 g/dL (12.0-16.0); Lymphocytes Absolute Auto 1900 /uL (1100-4500); Lymphocytes Percent Auto 16.1 % (25-40); Mean Corpuscular HGB Conc 34.3 % (30-36); Mean Corpuscular Hemoglobin 31.2 PG (26-34); Mean Corpuscular Volume 90.8 fL (80-100); Monocytes Absolute Auto 800 /uL (0-900); Monocytes Percent Auto 7.3 % (3-14); Neutrophils Absolute Auto 8600 /uL (1500-7000); Neutrophils Percent Auto 75.2 % (50-75); Platelet Count 170 X10^3/uL (150-400); Red Blood Cell Count 4.37 X10^6/uL (4.0-5.2); White Blood Cell Count 11.5 X10^3/uL (4.5-11.0)
[2021-07-31] MEDS: LACTATED RINGERS 1,000 ML 100 ML IV ×2 (10:03→12:28)
[2021-07-31] MEDS: PENICILLIN G POTASSIUM 5,000,000 UNIT in DEXTROSE 5% IN WATER 250 ML IV (10:03)
[2021-07-31] MEDS: OXYTOCIN PREMIX 30 UNIT/500 ML PLAST..BAG IV (10:11)
[2021-07-31 11:11] LABS: COVID19 - ADMIT (NP swab/PCR) Negative (Negative)
--- NOTE | 2021-07-31 12:37 | PM.AN.REGBLK ---
Regional Block Pre-procedure Procedure: Continuous Lumbar Epidural for L&D Attending OB provider: Gifty Zarate PMH/ROS narrative: term labor, no complications. PMH Crohn's ASA Class: II Labs: Hct Cancelled 07/31/21 09:48 Plt Count Cancelled 07/31/21 09:48 Medications: Current Medications Generic Name Dose Route Start Last Admin Trade Name Freq PRN Reason Stop Dose Admin Calcium Carbonate 500 mg 07/31/21 09:39 Calcium Carbonate 500 Mg Tab PO Q2HR PRN Dyspepsia Calcium Carbonate 1,000 mg 07/31/21 09:48 Calcium Carbonate 500 Mg Tab PO Q2HR PRN Dyspepsia Carboprost Tromethamine 250 mcg 07/31/21 09:39 Carboprost 250 Mcg/Ml Ampul IM Q90M PRN Bleeding Carboprost Tromethamine 250 mcg 07/31/21 09:48 Carboprost 250 Mcg/Ml Ampul IM Q90M PRN Bleeding Diphenhydramine HCl 25 mg 07/31/21 12:27 Diphenhydramine 50 Mg/Ml Vial IV Q10M PRN Pruritis Fentanyl 50 mcg 07/31/21 09:39 Fentanyl 100 Mcg/2 Ml Inj IV Q1H PRN Pain, Moderate (4-6) Fentanyl 50 mcg 07/31/21 09:48 Fentanyl 100 Mcg/2 Ml Inj IV Q1H PRN Pain, Moderate (4-6) Lactated Ringer's 1,000 mls @ 100 mls/hr 07/31/21 09:45 07/31/21 12:28 Lactated Ringers IV 100 mls/hr CONT [place] Administration Oxytocin/Lactated Ringer's 30 unit in 500 mls @ 200 mls/hr 07/31/21 09:39 Oxytocin Premix IV CONT PRN Bleeding Protocol Tranexamic Acid 1,000 mg/ 100 mls @ 200 mls/hr 07/31/21 09:39 Sodium Chloride IV NOW PRN Bleeding Penicillin G Potassium 3,000,000 unit in 50 mls @ 100 mls/hr 07/31/21 14:00 Penicillin G Potassium IV Q4H WE[place] Lactated Ringer's 1,000 mls @ 100 mls/hr 07/31/21 10:00 Lactated Ringers IV CONT [place] Oxytocin/Lactated Ringer's 30 unit in 500 mls @ 200 mls/hr 07/31/21 09:48 Oxytocin Premix IV CONT PRN Bleeding Protocol Tranexamic Acid 1,000 mg/ 100 mls @ 200 mls/hr 07/31/21 09:48 Sodium Chloride IV NOW PRN Bleeding Penicillin G Potassium 3,000,000 unit in 50 mls @ 100 mls/hr 07/31/21 14:00 Penicillin G Potassium IV Q4H [place] Oxytocin/Lactated Ringer's 30 unit in 500 mls @ 3 mls/hr 07/31/21 10:00 07/31/21 10:11 Oxytocin Premix IV 3 milliunit/min TITRATE [place] 3 mls/hr Administration Protocol 3 MILLIUNIT/MIN FENT 2MCG/ML BUPIV 0.125% EPI 200 mcg in 100 mls @ 6 mls/hr 07/31/21 12:30 Fentanyl/Bupiv/Ns 2mcg/Ml - 0.125% EPIDURAL CONT [place] Methylergonovine Maleate 0.2 mg 07/31/21 09:39 Methylergonovine 0.2 Mg Tablet PO Q6HR PRN Heavy Bleeding Methylergonovine Maleate 0.2 mg 07/31/21 09:39 Methylergonovine 0.2 Mg/Ml Vial IM NOW PRN Bleeding Methylergonovine Maleate 0.2 mg 07/31/21 09:48 Methylergonovine 0.2 Mg Tablet PO Q6HR PRN Heavy Bleeding Methylergonovine Maleate 0.2 mg 07/31/21 09:48 Methylergonovine 0.2 Mg/Ml Vial IM NOW PRN Bleeding Metoclopramide HCl 10 mg 07/31/21 09:39 Metoclopramide 10 Mg/2 Ml Inj IV NOW PRN Nausea And Vomiting Metoclopramide HCl 10 mg 07/31/21 09:48 Metoclopramide 10 Mg/2 Ml Inj IV NOW PRN Nausea And Vomiting Misoprostol 800 mcg 07/31/21 09:39 Misoprostol 200 Mcg Tablet GA NOW PRN Bleeding Misoprostol 1,000 mcg 07/31/21 09:39 Misoprostol 200 Mcg Tablet GA NOW PRN Bleeding Misoprostol 400 mcg 07/31/21 09:39 Misoprostol 200 Mcg Tablet SL NOW PRN Bleeding Misoprostol 800 mcg 07/31/21 09:48 Misoprostol 200 Mcg Tablet GA NOW PRN Bleeding Misoprostol 1,000 mcg 07/31/21 09:48 Misoprostol 200 Mcg Tablet GA NOW PRN Bleeding Misoprostol 400 mcg 07/31/21 09:48 Misoprostol 200 Mcg Tablet SL NOW PRN Bleeding Nalbuphine HCl 2.5 mg 07/31/21 12:27 Nalbuphine 20 Mg/Ml Ampul IV Q10M PRN Pruritis Naloxone HCl 0.2 mg 07/31/21 09:39 Naloxone 0.4 Mg/Ml Vial IV Q2MIN PRN Opiate Reversal Naloxone HCl 0.2 mg 07/31/21 09:48 Naloxone 0.4 Mg/Ml Vial IV Q2MIN PRN Opiate Reversal Ondansetron HCl 4 mg 07/31/21 09:39 Ondansetron 4 Mg/2 Ml Inj IV Q4HR PRN Nausea And Vomiting Ondansetron HCl 4 mg 07/31/21 09:48 Ondansetron 4 Mg/2 Ml Inj IV Q4HR PRN Nausea And Vomiting Oxytocin 10 unit 07/31/21 09:39 Oxytocin 10 Unit/Ml Vial IM NOW PRN Bleeding Oxytocin 10 unit 07/31/21 09:48 Oxytocin 10 Unit/Ml Vial IM NOW PRN Bleeding Allergies: Allergies Allergy/AdvReac Type Severity Reaction Status Date / Time No Known Drug Allergies Allergy Verified 07/30/21 10:00 Procedure Insertion date: 07/31/21 Insertion time: 11:55 Prep/Local: betadine x3 and 1% lidocaine Interspace: L2-3 Patient position: sitting Needle: 18 gauge AppSpotrtead (CSE: 27g Pencan through Hustead, clear CSF, 1mL 0.25% bupiv) Loss of resistance with: saline YUSUF at (cm): 5 Catheter placed at SKIN (cm): 10 Catheter in SPACE (cm): 5 Insertion: No CSF, No Blood, No Paresthesia with insertion, No Paresthesia with injection and No Test dose reaction Initial Medications TEST DOSE time: 11:56 TEST DOSE: 1.5% lidocaine with epinephrine 1:200k (mL): 3 BOLUS DOSE time: 12:02 BOLUS DOSE (mL): 3 BOLUS DOSE med: other (infusate) Infusion INFUSION: 0.125% bupivacaine and with fentanyl 2 mcg/mL Initial rate (mL/hr): 6 Subsequent interventions: 1156 test dose with questionable response. Negative aspiration, HR 80 to 90's, but during contraction. Repeated test dose, negative aspiration, 2.5mL lido with epi, no change in HR. 1330 50mcg fentanyl + 5mL 0.25% bupiv 1400 5mL 2-chloroprocaine 1420 Post-procedure Anesthesia time START: 11:42 Anesthesia time END: 14:22 Post-procedure Anesthesia Assessment: Yes CV function: HR/BP stable, Yes Resp function: RR/sat/airway adequate, Yes Mental status appropriate and No Anesthesia complications
[2021-07-31] MEDS: PENICILLIN G POTASSIUM 3,000,000 UNIT/50 ML FROZ.PIGGY 100 UNIT IV (13:37)
[2021-07-31] MEDS: IBUPROFEN 600 MG TABLET PO ×2 (15:41→21:52)
[2021-07-31] MEDS: ACETAMINOPHEN 325 MG TABLET 650 MG PO ×2 (15:41→21:51)
[2021-07-31 17:50] VITALS: BP 99/60
--- NOTE | 2021-07-31 19:16 | P.HPOB_ITS ---
OB HPI Date/Time Date of admission: 07/31/21 Date Patient Seen: 07/31/21 Time Patient Seen: 16:15 History of Present Condition Chief complaint: L&D FRANKIE Calculator Estimated Delivery Date Method Current WG Current Estimate 08/06/21 LMP (Certain) 39w 1d Other Estimates 08/06/21 Ultrasound #1 39w 1d Estimated Gestational Age (weeks): 39+1 : 5 Para: 1 care: good care, initiated at week # (8), number of visits (12) and pounds weight gain (43) Dating criteria OB: LMP confirmed by 1st trimester US Ultrasounds: normal 1st trimester US Obstetrical complications: none Medical complications OB: none Preadmission Labs Last OB Lab Results: Blood Type O Positive 07/31/21 09:40 07/31/21 Antibody Screen Negative 07/31/21 09:40 07/31/21 Hematocrit 39.7 % (36-46) 07/31/21 09:40 07/31/21 Hemoglobin 13.6 g/dL (12.0-16.0) 07/31/21 09:40 07/31/21 Hepatitis B Surface Antigen Negative s/c (NEGATIVE) 01/10/21 13:29 01/10/21 Hepatitis C Antibody Negative s/c (NEGATIVE) 01/10/21 13:29 01/10/21 Rubella Antibody 83.1 IU/mL (>15) 01/10/21 13:29 01/10/21 Varicella-Zoster IgG Antibody <135 index (Immune >165) L 01/10/21 13:29 01/10/21 Glucose 1 Hour 105 mg/dL (76-139) 04/30/21 09:16 04/30/21 Group B Streptococcus (PCR) Pos for grp b strep H 04/21/19 18:51 04/21/19 -: Chlamydia screen: negative, Gonorrhea screen: negative and Urine: negative -: PAP smear: Normal (2019) Genetic Screens: Cell-free DNA: Normal (nl male) and Alpha-fetoprotein: Normal External Labs -: Urine: negative Prior (ies) Past Pregnancies Del. Date GA/Weeks Labor Lgth Wt Sex Route Outcome Anesthesia Place Delv Breastfeed Preg Comp Name 02/13/18 8 spontaneous 06/15/18 5 spontaneous 05/13/19 39.2 13 8 lb 2 oz Male vaginal live - full ter m epidural IH w/ Dr. Zarate 16 mos.-oversupply/mastitis 2x none [place] 09/28/20 4-5 spontaneous Delivery Date: 02/13/18 Last Updated by: Zari Buckner R.N. Blighted Ovum. Delivery Date: 06/15/18 Last Updated by: Zari Buckner R.N. no ultrasound. Delivery Date: 05/13/19 Last Updated by: Zari Buckner R.N. 2nd degree c repair. Evaluation Evaluation Baseline heart rate: 135 Variability: Moderate (11-25) monitor accelerations: Present Monitor Decelerations: Absent Contraction Frequency (minutes): 3 Uterine Contraction Intensity: Strong/Firm Status: Category l Dilation (cm): 10 Effacement (%): 100 station: +3 Consistency: soft [facility] Medical History (Updated 01/12/21 @ 08:41 by Gifty Zarate MD) Abnormal Pap smear of cervix (~2009) Crohn's disease (~2005) Decreased thyroid stimulating hormone (TSH) level (~12/2019) Enlarged thyroid (~12/2019) History of stomach ulcers (~2013) Hot flashes (~2012) Surgical History (Updated 12/22/20 @ 12:26 by Zari Buckner RN) H/O colonoscopy (~2004) History of esophagogastroduodenoscopy (EGD) (~2013) Status post loop electrosurgical excision procedure (LEEP) of cervix Family History (Updated 12/22/20 @ 12:31 by Zari Buckner RN) Father Age: 72 Hypertension Grandmother Age: 90 Diabetes mellitus Hypertension Mother Age: 63 Hypertension Crohn disease Grandfather Heart disease Hypertension Congestive heart failure Grandmother Age: 86 Hypertension Congestive heart failure Grandfather No problems noted. Family/Other Breast cancer Social History marital status: number of children: 1 household members: spouse and children lives independently: Yes caregiver/support person: No housing: house pets and animals: Yes (1 dog, very gentle. 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.) current occupational exposures/hazards: No delfino/oriental orthodox: L[employer] special delfino needs: No seatbelt use: always working smoke detector in home: Yes fire extinguisher in home: Yes carbon monox detector in home: Yes firearms in home: No do you feel safe at home: Yes Smoking Status: Never smoker second hand exposure: No alcohol intake: former (A couple glasses of wine a week, pre-.) substance use type: does not use during the past year weight has: remained stable well-balanced diet: daily or most days daily servings fruits/ve-4 caffeine: Yes (Switched to decaf with .) eating out: rarely or never Type(s) of exercise: walking, regular exercise, running (Stopped running with . ) and normal ROM and activity (Dog walking, chasing toddler, busy mom. ) frequency: daily duration: 45-60 minutes/day Meds Home Medications and Allergies Home Medications Medication Instructions Recorded Confirmed Type prenat.vits,lacho,vtd-aapg-eexgc 1 tab PO DAILY 11/09/18 07/31/21 History Allergies Allergy/AdvReac Type Severity Reaction Status Date / Time No Known Drug Allergies Allergy Verified 07/30/21 10:00 OB Exam Narrative Exam Narrative: Generally: Mild distress secondary to feeling contractions through the epidural Estimated weight: 7-1/2 lb Extremities: No edema Objective Labs Result Diagrams: 07/31/21 09:40 Labs: Laboratory Results - last 24 hr 07/31/21 07/31/21 07/31/21 09:40 09:40 09:40 WBC 11.5 H RBC 4.37 Hgb 13.6 Hct 39.7 MCV 90.8 MCH 31.2 MCHC 34.3 RDW 14.0 Plt Count 170 Neut % (Auto) 75.2 H Lymph % (Auto) 16.1 L Coffey % (Auto) 7.3 Eos % (Auto) 0.9 L Baso % (Auto) 0.5 Neut # (Auto) 8600 H Lymph # (Auto) 1900 Coffey # (Auto) 800 Eos # (Auto) 100 Baso # (Auto) 100 SARS-CoV-2 (PCR) Negative Blood Type O Positive Antibody Screen Negative 07/31/21 09:48 WBC Cancelled RBC Cancelled Hgb Cancelled Hct Cancelled MCV Cancelled MCH Cancelled MCHC Cancelled RDW Cancelled Plt Count Cancelled Neut % (Auto) Cancelled Lymph % (Auto) Cancelled Coffey % (Auto) Cancelled Eos % (Auto) Cancelled Baso % (Auto) Cancelled Neut # (Auto) Cancelled Lymph # (Auto) Cancelled Coffey # (Auto) Cancelled Eos # (Auto) Cancelled Baso # (Auto) Cancelled SARS-CoV-2 (PCR) Blood Type Antibody Screen Assessment and Plan Assessment and Plan Assessment and Plan narrative: Assessment: 30-year-old 5 para 1 at 39-,1/7 weeks gestation in active labor entering second stage Status post 2 doses of antibiotics for group B strep Plan: Expected management to spontaneous vaginal delivery Time Spent with Patient Total time spent with greater than 50% in coordination of care (as documented) at patient's floor/unit and/or counseling patient:: Greater than 35 minutes
--- NOTE | 2021-07-31 19:19 | PM.OBPRVD ---
Labor & Delivery Delivery date: 07/31/21 Cervical ripening method: none Induction method: none Delivery augmentation: rupture of membranes Delivery monitor: external FHT and external uterine Route of delivery: Episiotomy description: None L&D Laceration Description: Perineal - 2nd Degree and Vaginal - 2nd Degree Delivery repair: vicryl and chromic Estimated blood loss (mL): 200 Anesthesia Type: Epidural Complications: None Narrative: Patient complete at 2:14 p.m.. She pushed for 16 minutes. At 1622, a live male infant delivered spontaneously in the MIA presentation, over an intact perineum. No nuchal cord. The remainder of the body delivered without difficulty and was placed on mom's abdomen. The cord was double clamped and cut once it stopped pulsing. Cord bloods were obtained. Pitocin was given in the IV fluids. The placenta delivered intact with a three-vessel cord at 2:30 p.m.. The fundus was massaged to firm. A vaginal/perineal second-degree laceration was noted at the 4 and 8:00 a.m. positions. These were repaired with 2 0 Vicryl and 3-0 chromic in the usual fashion. Estimated blood loss 200 cc. Hemostasis was achieved. Apgars 9 at 1 minute and 9 at 5 minutes. weight 7 lb 13 oz. . Mom and infant stable to recovery. [place] Baby 1: Infant gender: Male Presentation: vertex Position: Right Occiput Anterior Placenta delivery description: Spontaneous Cord Vessel Description: 3 Vessels score (1 min): 9 score (5 min): 9 weight: 7 lb 13 oz Plan for aftercare: Routine care
[2021-07-31 21:51] VITALS: TEMP 36.6
[2021-07-31 21:52] VITALS: TEMP 36.6
[2021-08-01 03:55] VITALS: TEMP 36.4
[2021-08-01] MEDS: ACETAMINOPHEN 325 MG TABLET 650 MG PO ×2 (03:55→10:29)
[2021-08-01 03:56] VITALS: TEMP 36.6
[2021-08-01] MEDS: IBUPROFEN 600 MG TABLET PO ×2 (03:56→10:29)
[2021-08-01 07:19] LABS: Hematocrit 31.8 % (36-46); Hemoglobin 11.3 g/dL (12.0-16.0)
[2021-08-01] MEDS: PRENATAL VIT,CALC/IRON/FOLIC 1 TABLET 1 TAB PO (10:29)
[2021-08-01] MEDS: DOCUSATE 100 MG CAPSULE PO (10:31)
[2021-08-01 10:36] VITALS: BP 101/64; PULSE 77; RESP 16; TEMP 37
--- NOTE | 2021-08-11 11:30 | P.CALLCOV_ITS ---
Call Coverage Note Note Date of Patient Contact: 08/11/21 Time of Patient Contact: 11:30 Narrative of Care Provided: Araceli called c/o suspected mastitis. Has had pain in medial aspect of left breast >24 hours. Area is firm and red, but she is unable to localize a single clogged duct. Has had body aches and chills today, but has not checked her temp for a fever. Continuing to breastfeed, though it is painful. Is resistant to antibiotics initiation, but will start them if sx worsen or persist. Counseled on supportive measures: Tylenol/ibuprofen, moist heat, breast massage to affected area, frequent nursing and changing nursing positions. Rx dicloxicil tina sent w/ recommendation to start if no improvement after 24 hours of onset of systemic sx.
== END 2021-08-01 13:26 | disposition home or self-care (01) | DRG 807 ==
PROVIDERS: Admitting Provider Obstetrics & Gynecology; PCP Nurse Practitioner Family; Referring Provider Obstetrics & Gynecology; Visit Provider Obstetrics & Gynecology
DX: O99.824 Streptococcus B carrier state complicating childbirth (principal); Z37.0 Single live birth; O70.1 Second degree perineal laceration during delivery; Z3A.39 39 weeks gestation of pregnancy; Z20.822 Contact with and (suspected) exposure to COVID-19
CPT/HCPCS: 01967; 36415; 59050; 59400; 85014; 85018; 85025; 86850; 86900; 86901; 87635; C9803; G0379; J2540; J2590

== ENCOUNTER → 2023-01-04 10:09 | Outpatient (CLI) | payer OTHER, SELFPAY | PROVIDERS: PCP Nurse Practitioner Family; Visit Provider Physician Assistant | DX: J02.9 Acute pharyngitis, unspecified (principal) | CPT/HCPCS: 87070 ==